=== PATIENT | female | born 1990 | race Caucasian/White ===

== ENCOUNTER 2020-07-02 18:59 | Emergency (ER) | payer OTHER ==
[~2020-07-02] VITALS: Ht 172.7 cm; Wt 54.4 kg
[~2020-07-02 18:59] MED LIST: AMOXICILLIN875 MG PO; DOXYCYCLINE 10100 MG PO; IBUPROFEN 800800 MG PO; NORCO 5-325 TA1 EACH PO; Percocet; VICODIN
[2020-07-02 20:32] LABS: URINE BILIRUBIN NEGATIVE (Negative); URINE BLOOD NEGATIVE (Negative); URINE CLARITY CLEAR; URINE COLOR YELLOW; URINE GLUCOSE-RANDOM NEGATIVE (Negative); URINE KETONES 1+ (Negative); URINE LEUKOCYTES-REFLEX 2+ (Negative); URINE NITRITE-REFLEX NEGATIVE (Negative); URINE PROTEIN NEGATIVE (Negative); URINE UROBILINOGEN 0.2 E.U./dl (0.2-1.0)
[2020-07-02 20:41] LABS: AMP/METHAMP POSITIVE (Negative); BARBITURATES Negative (Negative); BENZODIAZEPINES Negative (Negative); COCAINE Negative (Negative); METHADONE Negative (Negative); OPIATES POSITIVE (Negative); PCP Negative (Negative); THC Negative (Negative)
[2020-07-02 20:47] LABS: BACTERIA-REFLEX 1-9 Few /HPF (None Seen); CASTS None Seen /LPF (None Seen); CRYSTALS None Seen /LPF (None Seen); MUCUS None Seen strn/LPF (None Seen); SQUAMOUS >10 Many /LPF (0-3); URINE RBC 0-2 Rare /HPF (0-2)
[2020-07-02 22:25] VITALS: BP 123/75
== END 2020-07-02 22:27 | disposition home or self-care (01) ==
LOC: M.ERS 18:59
PROVIDERS: Personal Emergency Response Attendant
DX: R56.9 Unspecified convulsions (principal); R41.82 Altered mental status, unspecified; Z86.718 Personal history of other venous thrombosis and embolism; Z86.711 Personal history of pulmonary embolism

== ENCOUNTER 2021-03-30 12:29 | Emergency (ER) | payer OTHER ==
[~2021-03-30] VITALS: Ht 170.2 cm; Wt 50.8 kg
[2021-03-30 16:29] VITALS: BP 90/55
== END 2021-03-30 16:30 ==
LOC: M.ERS 12:29
DX: Z45.2 Encounter for adjustment and management of vascular access device (principal); Z20.822 Contact with and (suspected) exposure to COVID-19; M79.601 Pain in right arm; R51.9 Headache, unspecified; R50.9 Fever, unspecified; Z86.718 Personal history of other venous thrombosis and embolism; Z86.711 Personal history of pulmonary embolism